=== PATIENT | female | born 1970 | race Caucasian/White ===

== ENCOUNTER 2019-08-19 17:27 | Emergency (ER) | payer SELFPAY ==
[2019-08-19] MEDS ORDERED: FENTANYL CITR 100 MCG/2 ML ONE ×2 (18:13→19:42)
[2019-08-19] MEDS ORDERED: NA CHLORIDE 0.9% 1,000 ML ONE (18:13)
[2019-08-19] MEDS ORDERED: ONDANSETRON 4 MG/2 ML VIAL ONE (18:13)
[2019-08-19 18:32] LABS: Absolute Lymphocytes (CBC) 2.9 K/uL (0.7-4.9); Basophils % 0.2 % (0-1.3); Hematocrit 37.9 % (36.0-45.0); MPV 7.9 fL (7.6-11.3); RBC Red Blood Cell Count 4.62 M/uL (3.86-4.86)
[2019-08-19 18:47] LABS: Urine Blood 2+ (NEG); Urine Glucose NEGATIVE (NEG); Urine Protein 1+ (NEG); Urine pH 6.5 (5.0-7.0)
[2019-08-19 18:53] LABS: ALT/SGPT 17 U/L (12-78); AST/SGOT 18 U/L (15-37); Albumin 3.6 g/dL (3.4-5.0); Alkaline Phosphatase 115 U/L (45-117); BUN Blood Urea Nitrogen 18 mg/dL (7-18); Bicarbonate 27 mmol/L (21-32); Bilirubin Direct < 0.1 mg/dL (0-0.2); Bilirubin Total 0.2 mg/dL (0.2-1.0); Glucose Level 174 mg/dL (74-106); Lipase 184 U/L (73-393); Protein, Total 7.8 g/dL (6.4-8.2); Sodium Level 136 mmol/L (136-145)
--- NOTE | 2019-08-19 19:23 | RAD REPORT ---
EXAM DESCRIPTION: CT - Abdomen Pelvis W Contrast - 08/19/2019 7:14 pm CLINICAL HISTORY: Abdominal pain COMPARISON: none. TECHNIQUE: Computed axial tomography of the abdomen pelvis was obtained. 100 cc Isovue-300 was admin istered intravenously. Oral contrast was not requested which limits evaluation of bowel. All CT scans are performed using dose optimization technique as appropriate and may include automated exposure control or mA/KV adjustment according to patient size. FINDINGS: The liver, spleen, pancreas, adrenal and kidneys appear unremarkable. There is no evidence of diverticulitis. Normal appendix. Cholecystectomy Air within the vagina Small umbilical hernia IMPRESSION: Air within the vagina can be secondary to recent instrumentation. Infection can also hav e this appearance should be correlated clinically.
[2019-08-19 19:46] LABS: Urine Bacteria <20 /HPF (<20); Urine Culture Reflex Order REFLEXED
--- NOTE | 2019-08-19 21:20 | ER ---
Nurse's Notes [facility] – [place], [place] Name: Jennifer Morgan Age: 48 yrs Sex: Female : 1970 Arrival Date: 08/19/2019 Time: 17:31 Bed 18 Private MD: Diagnosis: Urinary tract infection, site not specified;Unspecified abdominal pain Presentation: 08/19 17:44 Presenting complaint: Patient states: pelvic pain that began 3 days ago and got worse aa5 yesterday. Reports nausea, denies vomiting. Transition of care: patient was not received from another setting of care. Onset of symptoms was August 2019. Risk Assessment: Do you want to hurt yourself or someone else? Patient reports no desire to harm self or others. Initial Sepsis Screen: Does the patient meet any 2 criteria? No. Patient's initial sepsis screen is negative. Does the patient have a suspected source of infection? No. Patient's initial sepsis screen is negative. Care prior to arrival: None. 17:44 Acuity: SOCO 3 aa5 17:44 Method Of Arrival: Ambulatory aa5 Triage Assessment: 17:48 General: Appears in no apparent distress. comfortable, obese, Behavior is cooperative, bp appropriate for age, anxious. Pain: Complains of pain in pelvis. EENT: No deficits noted. Neuro: No deficits noted. Cardiovascular: No deficits noted. Respiratory: No deficits noted. GI: Reports nausea. : No signs and/or symptoms were reported regarding the genitourinary system. Derm: No deficits noted. Musculoskeletal: Circulation, motion, and sensation intact. Range of motion: intact in all extremities. 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 - Social history:: Smoking status: Patient/guardian denies using tobacco. - Ebola Screening: : No symptoms or risks identified at this time. Screenin:49 Abuse screen: Denies threats or abuse. Denies injuries from another. Nutritional bp screening: No deficits noted. Tuberculosis screening: No symptoms or risk factors identified. Fall Risk None identified. Assessment: 17:49 General: SEE TRIAGE NOTE. Neuro: Level of Consciousness is awake, alert, obeys bp commands, Oriented to person, place, time, situation, Appropriate for age. 19:53 Reassessment: Patient appears in no apparent distress at this time. Patient and/or ch family updated on plan of care and expected duration. Pain level reassessed. Patient is alert, oriented x 3, equal unlabored respirations, skin warm/dry/pink. General: Appears in no apparent distress. uncomfortable, Behavior is calm, cooperative. Pain: Complains of pain in pelvis Pain currently is 7 out of 10 on a pain scale. Cardiovascular: No deficits noted. Respiratory: No deficits noted. GI: Abdomen is non-distended, obese, Bowel sounds present X 4 quads. Abd is soft X 4 quads Abdomen is tender to palpation in suprapubic area. : Reports burning with urination, urgency. EENT: No signs and/or symptoms were reported regarding the EENT system. Derm: Skin is pink, warm \T\ dry. 20:30 Reassessment: Patient appears in no apparent distress at this time. Patient and/or ch family updated on plan of care and expected duration. Pain level reassessed. 21:01 Reassessment: Patient appears in no apparent distress at this time. No changes from previously documented assessment. Patient and/or family updated on plan of care and expected duration. Pain level reassessed. Patient is alert, oriented x 3, equal unlabored respirations, skin warm/dry/pink. pt verb understanding of wait for Swab results. 21:40 Reassessment: Patient appears in no apparent distress at this time. Patient and/or ch family updated on plan of care and expected duration. Pain level reassessed. Patient is alert, oriented x 3, equal unlabored respirations, skin warm/dry/pink. Patient states symptoms have not improved. Vital Signs: 17:46 BP 123 / 84; Pulse 74; Resp 18 S; Temp 97.4(TE); Pulse Ox 100% on R/A; Weight 95.25 kg aa5 (R); Height 5 ft. 4 in. (162.56 cm) (R); Pain 9/10; 19:00 BP 134 / 77; Pulse 62; Resp 14; Temp 98.5; Pulse Ox 99% on R/A; Pain 7/10; ch 19:55 BP 142 / 78; Pulse 64; Resp 16; Pulse Ox 98% on R/A; Pain 7/10; ch 21:01 BP 138 / 86; Pulse 62; Resp 16; Temp 98.8; Pulse Ox 99% on R/A; Pain 6/10; ch 21:47 BP 125 / 84; Pulse 64; Resp 16; Temp 98.8; Pulse Ox 99% on R/A; Pain 5/10; ch 17:46 Body Mass Index 36.05 (95.25 kg, 162.56 cm) aa5 ED Course: 17:31 Patient arrived in ED. rg4 17:44 Arm band placed on. aa5 17:45 Triage completed. aa5 17:47 Miles Ashton, RN is Primary Nurse. bp 17:49 Patient has correct armband on for positive identification. Bed in low position. Call bp light in reach. Side rails up X2. 17:50 Otis Edouard NP is PHCP. pm1 17:50 Richie Wilson MD is Attending Physician. pm1 18:10 Initial lab(s) drawn, by mi, sent to lab. Inserted saline lock: 22 gauge in right kj1 antecubital area, using aseptic technique. Blood collected. 18:21 Urine Microscopic Only Sent. kj1 19:[address] via wheelchair. vm2 19:08 CT completed. Patient tolerated procedure well. Patient moved back from CT. vm2 19:11 Primary Nurse role handed off by Miles Ashton, RN ch 19:11 Alda Herring, RN is Primary Nurse. ch 19:14 CT Abd/Pelvis - IV Contrast Only In Process Unspecified. EDMS 20:30 Assist provider with pelvic exam: Set up pelvic tray. Performed by Otis Edouard NP ch Specimens sent to lab. Patient tolerated well. 21:07 GC (GONORR/CHLAMYDIA) Probe Sent. ch 21:07 Wet Prep Sent. ch 21:47 IV discontinued, intact, bleeding controlled, No redness/swelling at site. Pressure ch dressing applied. Administered Medications: 18:10 Drug: NS 0.9% 1000 ml Route: IV; Rate: 1000 ml; Site: right antecubital; bp 19:56 Follow up: IV Status: Completed infusion; IV Intake: 1000ml ch 18:10 Drug: fentaNYL (PF) 50 mcg Route: IVP; Site: right antecubital; bp 19:15 Follow up: Response: No adverse reaction bp 18:10 Drug: Zofran 4 mg Route: IVP; Site: right antecubital; bp 19:16 Follow up: Response: No adverse reaction bp 19:50 Drug: fentaNYL (PF) 50 mcg Route: IVP; Site: right antecubital; ch 21:07 Follow up: Response: No adverse reaction; Pain is decreased ch 21:30 Drug: Rocephin 1 grams Route: IV; Rate: calculated rate; Infused Over: 10 mins; Site: ch right antecubital; 21:31 Follow up: IV Status: Completed infusion ch 21:30 Drug: Zithromax 1 grams Route: PO; Intake: 19:56 IV: 1000ml; Total: 1000ml. Outcome: 21:20 Discharge ordered by . pm1 21:47 Discharged to home ambulatory, with family. 21:47 Condition: stable 21:47 Discharge instructions given to patient, family, Instructed on discharge instructions, follow up and referral plans. medication usage, Demonstrated understanding of instructions, follow-up care, medications, Prescriptions given X 1. 21:48 Patient left the ED. Signatures: Dispatcher [employer] EDAlda Segura RN RN Blanca Alan RN RN aa5 Otis Edouard, ANTHONY MOMD TEACHER pm1 Kayla Chaidez 4 Silvina Ramires 2 Miles Ashton RN RN bp Denise Menezes kj1
--- NOTE | 2019-08-19 21:20 | EDPHYS ---
Physician Documentation [facility] Name: Jennifer Morgan Age: 48 yrs Sex: Female : 1970 Arrival Date: 08/19/2019 Time: 17:31 Bed 18 Private MD: ED Physician Richie Wilson HPI: 08/19 18:09 This 48 yrs old Female presents to ER via Ambulatory with complaints of pm1 Pelvic Pain. 18:09 The patient presents with pelvic pain, urinary symptoms, dysuria, frequency. pm1 18:09 Onset: The symptoms/episode began/occurred 3 day(s) ago. Modifying factors: The pm1 symptoms are alleviated by nothing, the symptoms are aggravated by urinating. Associated signs and symptoms: Pertinent positives: dysuria, nausea, questionable vaginal discharge and odor, Pertinent negatives: constipation, diarrhea, fever, vomiting. Severity of symptoms: in the emergency department the symptoms are actually worse. The patient is sexually active, reportedly has a single partner, has not had sex for at least 2 months. The patient's method of control includes nothing. The patient has not experienced similar symptoms in the past. It is unknown whether or not the patient has recently seen a physician. 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 - Social history:: Smoking status: Patient/guardian denies using tobacco. - Ebola Screening: : No symptoms or risks identified at this time. ROS: 18:09 Positive for pelvic pain, urinary frequency, burning with urination, Right flank pm1 pain. 18:09 Constitutional: Negative for fever, chills, and weight loss, Cardiovascular: Negative for chest pain, palpitations, and edema, Respiratory: Negative for shortness of breath, cough, wheezing, and pleuritic chest pain. 18:09 MS/Extremity: Negative for injury and deformity, Skin: Negative for injury, rash, and discoloration, Neuro: Negative for headache, weakness, numbness, tingling, and seizure. 18:09 Abdomen/GI: Positive for abdominal pain, nausea, Negative for vomiting, diarrhea, constipation. 18:09 Back: Positive for flank pain, on the right. 18:09 : Positive for pelvic pain, urinary frequency, burning with urination. Exam: 18:09 Constitutional: This is a well developed, well nourished patient who is awake, alert, pm1 and in no acute distress. Head/Face: Normocephalic, atraumatic. Chest/axilla: Normal chest wall appearance and motion. Nontender with no deformity. No lesions are appreciated. Cardiovascular: Regular rate and rhythm with a normal S1 and S2. No gallops, murmurs, or rubs. Normal PMI, no JVD. No pulse deficits. Respiratory: Lungs have equal breath sounds bilaterally, clear to auscultation and percussion. No rales, rhonchi or wheezes noted. No increased work of breathing, no retractions or nasal flaring. 18:09 Skin: Warm, dry with normal turgor. Normal color with no rashes, no lesions, and no evidence of cellulitis. MS/ Extremity: Pulses equal, no cyanosis. Neurovascular intact. Full, normal range of motion. 18:09 Abdomen/GI: Inspection: abdomen appears normal, Bowel sounds: normal, Palpation: soft, mild abdominal tenderness, in the suprapubic area. 18:09 Back: normal spinal alignment noted, CVA tenderness, is noted on the right, vertebral tenderness, is not appreciated. 18:09 Neuro: Orientation: is normal, Motor: is normal, moves all fours. 20:26 : Pelvic Exam: External exam: is normal, Speculum exam: no bleeding is noted, no pm1 cervicitis, bimanual exam reveals no uterine tenderness, no adnexa tenderness or masses bilaterally, discharge, clear, Bianca FLORES. Vital Signs: 17:46 BP 123 / 84; Pulse 74; Resp 18 S; Temp 97.4(TE); Pulse Ox 100% on R/A; Weight 95.25 kg aa5 (R); Height 5 ft. 4 in. (162.56 cm) (R); Pain 9/10; 19:00 BP 134 / 77; Pulse 62; Resp 14; Temp 98.5; Pulse Ox 99% on R/A; Pain 7/10; ch 19:55 BP 142 / 78; Pulse 64; Resp 16; Pulse Ox 98% on R/A; Pain 7/10; ch 21:01 BP 138 / 86; Pulse 62; Resp 16; Temp 98.8; Pulse Ox 99% on R/A; Pain 6/10; ch 21:47 BP 125 / 84; Pulse 64; Resp 16; Temp 98.8; Pulse Ox 99% on R/A; Pain 5/10; ch 17:46 Body Mass Index 36.05 (95.25 kg, 162.56 cm) aa5 MDM: 17:50 Patient medically screened. pm1 21:19 Data reviewed: vital signs. Data interpreted: Pulse oximetry: on room air is 99 %. pm1 Interpretation: normal. Counseling: I had a detailed discussion with the patient and/or guardian regarding: the historical points, exam findings, and any diagnostic results supporting the discharge/admit diagnosis, lab results, radiology results, the need for outpatient follow up, to return to the emergency department if symptoms worsen or persist or if there are any questions or concerns that arise at home. 08/19 17:56 Order name: Basic Metabolic Panel; Complete Time: 19:37 pm1 08/19 17:56 Order name: CBC with Diff; Complete Time: 18:44 pm1 08/19 17:56 Order name: Creatinine for Radiology; Complete Time: 19:37 pm1 08/19 17:56 Order name: Hepatic Function; Complete Time: 19:37 pm1 08/19 17:56 Order name: Lipase; Complete Time: 19:37 pm1 08/19 17:56 Order name: Urine Microscopic Only; Complete Time: 19:50 pm1 08/19 17:56 Order name: CT Abd/Pelvis - IV Contrast Only; Complete Time: 19:37 pm1 08/19 18:34 Order name: Urine Dipstick--Ancillary (enter results); Complete Time: 19:37 eb 08/19 18:34 Order name: Urine --Ancillary (enter results); Complete Time: 19:37 eb 08/19 19:47 Order name: Urine Culture EDNY 08/19 20:26 Order name: Wet Prep; Complete Time: 21:17 pm1 08/19 20:26 Order name: GC (GONORR/CHLAMYDIA) Probe pm1 08/19 17:56 Order name: IV Saline Lock; Complete Time: 18:21 pm1 08/19 17:56 Order name: Labs collected and sent; Complete Time: 18:21 pm1 08/19 17:56 Order name: Urine Dipstick-Ancillary (obtain specimen); Complete Time: 18:21 pm1 08/19 17:56 Order name: Urine Test (obtain specimen); Complete Time: 18:24 pm1 08/19 19:38 Order name: Pelvic Exam Setup; Complete Time: 19:43 pm1 Administered Medications: 18:10 Drug: NS 0.9% 1000 ml Route: IV; Rate: 1000 ml; Site: right antecubital; bp 19:56 Follow up: IV Status: Completed infusion; IV Intake: 1000ml ch 18:10 Drug: fentaNYL (PF) 50 mcg Route: IVP; Site: right antecubital; bp 19:15 Follow up: Response: No adverse reaction bp 18:10 Drug: Zofran 4 mg Route: IVP; Site: right antecubital; bp 19:16 Follow up: Response: No adverse reaction bp 19:50 Drug: fentaNYL (PF) 50 mcg Route: IVP; Site: right antecubital; ch 21:07 Follow up: Response: No adverse reaction; Pain is decreased ch 21:30 Drug: Rocephin 1 grams Route: IV; Rate: calculated rate; Infused Over: 10 mins; Site: ch right antecubital; 21:31 Follow up: IV Status: Completed infusion ch 21:30 Drug: Zithromax 1 grams Route: PO; ch Disposition: 08/20 15:29 Co-signature as Attending Physician, Richie Wilson MD. Disposition: 08/19/19 21:20 Discharged to Home. Impression: Unspecified abdominal pain, Urinary tract infection, site not specified. - Condition is Stable. - Discharge Instructions: Abdominal Pain, Adult, Urinary Tract Infection, Adult. - Prescriptions for Bactrim DS 800- 160 mg Oral Tablet - take 1 tablet by ORAL route every 12 hours for 10 days; 20 tablet. Tylenol- Codeine #3 300-30 mg Oral Tablet - take 2 tablets by ORAL route every 6 hours As needed; 20 tablet. - Medication Reconciliation Form, Thank You Letter, Antibiotic Education, Prescription Opioid Use form. - Follow up: Emergency Department; When: As needed; Reason: Worsening of condition. Follow up: Private Physician; When: 2 - 3 days; Reason: Recheck today's complaints, Continuance of care, Re-evaluation by your physician. - Problem is new. - Symptoms have improved. Signatures: Dispatcher [employer] EDMS Alda Herring, MARK RN Blanca Muhammad RN RN aa5 Otis Edouard, PHOTOGRAPH FINISHER PHOTOGRAPH FINISHER pm1 Richie Wilson MD MD gs Peltier, Brian RN RN bp Corrections: (The following items were deleted from the chart) 08/19 21:20 21:20 08/19/2019 21:20 Discharged to Home. Impression: Urinary tract infection, site pm1 not specified; Unspecified abdominal pain. Condition is Stable. Forms are Medication Reconciliation Form, Thank You Letter, Antibiotic Education, Prescription Opioid Use. Follow up: Emergency Department; When: As needed; Reason: Worsening of condition. Follow up: Private Physician; When: 2 - 3 days; Reason: Recheck today's complaints, Continuance of care, Re-evaluation by your physician. Problem is new. Symptoms have improved. pm1 21:48 21:20 08/19/2019 21:20 Discharged to Home. Impression: Unspecified abdominal ch painUrinary tract infection, site not specified. Condition is Stable. Forms are Medication Reconciliation Form, Thank You Letter, Antibiotic Education, Prescription Opioid Use. Follow up: Emergency Department; When: As needed; Reason: Worsening of condition. Follow up: Private Physician; When: 2 - 3 days; Reason: Recheck today's complaints, Continuance of care, Re-evaluation by your physician. Problem is new. Symptoms have improved. pm1
[2019-08-19] MEDS ORDERED: AZITHROMYCIN 250 MG TAB ONE (21:23)
[2019-08-19] MEDS ORDERED: CEFTRIAXONE 1000 MG/VIAL ONE (21:23)
[2019-08-19 23:35] VITALS: TEMP 98.8; O2SAT 99
[2019-08-19 23:37] VITALS: BP 125/84
[2019-08-23 18:30] LABS: C.trachomatis RNA,TMA Not Detected (Not Detected)
== END 2019-08-19 21:48 | disposition home or self-care (01) ==
LOC: ER 17:27
DX: N39.0 Urinary tract infection, site not specified (principal); Z88.5 Allergy status to narcotic agent
CPT/HCPCS: 36415; 74177; 80048; 80076; 81003; 81015; 81025; 83690; 85025; 87086; 87088; 87210; 87490; 87590; 96361; 96374; 96375; 99284; J2405; J3010; J7030; Q9967